=== PATIENT | female | born 1945 | race Caucasian/White ===

== ENCOUNTER 2017-06-03 16:38 | Emergency (ER) | payer OTHER ==
[~2017-06-03] VITALS: Ht 162.6 cm; Wt 74.5 kg
[~2017-06-03 16:38] MED LIST: ACT30 PO; ANECREAM; ANT25 PO; ASPIR-LOW81 M1 PO; COL100 PO; DIA5 PO; FENOFIBRATE48 M1 PO; FERROUS SULFAT325 M2 PO; FOL1 PO; GLIPIZIDE10 MG PO; GLU500 PO; HYDROMORPHONE2 M1 PO; HYDROXYCHLOROQ200 MG PO; I20 PO; L40 PO; LAC PO; LISINOPRIL10 MG PO; LOVASTATIN PO; MAC100 PO; MELOXICAM15 M1 PO; MET2.5 PO; METOPROLOL TARTRATE PO; MIC8 PO; MOT800 PO; NEU300 PO; NITROGLYCERIN0.4 MG SL; OMEPRAZOLE40 M1 PO; PRE5 PO; PREDNISONE2.5 MG PO; PRI20 PO; REG10 PO; RES15 PO; SYN125 PO; TRICOR PO; VENTOLIN HFA; VICODIN1 TA1 PO; XANAX0.25 MG PO; ZES10 PO; ZOC10 PO
[2017-06-03 17:51] LABS: BASOPHIL % 0.2 % (0-2); PLATELET COUNT 206 x10^3mcL (130-400)
[2017-06-03 17:55] LABS: CALCIUM 9.7 mg/dL (8.5-10.1); CHLORIDE SERUM 102 mmol/L (98-107); CREATININE SERUM 1.6 mg/dL (0.6-1.0); GLUCOSE SERUM 123 mg/dL (74-106); POTASSIUM SERUM 4.3 mmol/L (3.5-5.1); SODIUM SERUM 137 mmol/L (136-145)
[2017-06-03 17:59] LABS: ALBUMIN 3.8 g/dL (3.4-5.0); ALKALINE PHOSPHATASE 52 U/L (46-116); ALT/SGPT 13 U/L (14-59); AMYLASE 50 U/L (25-115); AST/SGOT 13 U/L (15-37); BILIRUBIN TOTAL 0.3 mg/dL (0.20-1.00); LIPASE 347 IU/L (73-393)
[2017-06-03 18:01] LABS: RED CELL DISTRIBUTION WIDTH 15.6 % (11.5-14.5)
[2017-06-03 18:09] LABS: microscopic required? NO
[2017-06-03 18:15] LABS: UA SPECIFIC GRAVITY 1.015 (1.005-1.035); urine erythrocyte NEGATIVE (NEGATIVE)
[2017-06-03 20:48] VITALS: BP 133/76
== END 2017-06-03 20:42 | disposition home or self-care (01) ==
LOC: ED 16:38
PROVIDERS: Emergency Medicine
DX: R10.30 Lower abdominal pain, unspecified (principal); K57.92 Diverticulitis of intestine, part unspecified, without perforation or abscess without bleeding; I49.9 Cardiac arrhythmia, unspecified; I10 Essential (primary) hypertension; E11.9 Type 2 diabetes mellitus without complications
CPT/HCPCS: 36415; J2270; Q0162

== ENCOUNTER 2017-08-02 09:06 | Emergency (ER) | payer OTHER ==
[~2017-08-02] VITALS: Ht 162.6 cm; Wt 76.7 kg
[2017-08-02 10:25] VITALS: BP 146/70
== END 2017-08-02 10:39 | disposition home or self-care (01) ==
LOC: ED 09:06
DX: M54.31 Sciatica, right side (principal); I12.9 Hypertensive chronic kidney disease with stage 1 through stage 4 chronic kidney disease, or unspecified chronic kidney disease; E11.22 Type 2 diabetes mellitus with diabetic chronic kidney disease; N18.3 Chronic kidney disease, stage 3 (moderate); Z90.49 Acquired absence of other specified parts of digestive tract; Z90.710 Acquired absence of both cervix and uterus
CPT/HCPCS: J1100; J1885

== ENCOUNTER 2018-07-06 21:08 | Emergency (ER) | payer OTHER ==
[~2018-07-06] VITALS: Ht 162.6 cm; Wt 73.6 kg
[2018-07-06 21:16] VITALS: Ht 162.6 cm; Wt 73.6 kg
[2018-07-06 22:32] LABS: CALCIUM 9.6 mg/dL (8.5-10.1); CARBON DIOXIDE 20.9 mmol/L (21-32); CHLORIDE SERUM 109 mmol/L (98-107); CREATININE SERUM 1.6 mg/dL (0.6-1.0); GLUCOSE SERUM 131 mg/dL (74-106); POTASSIUM SERUM 4.4 mmol/L (3.5-5.1); SODIUM SERUM 140 mmol/L (136-145)
[2018-07-06 22:33] LABS: BASOPHIL % 0.4 % (0-2); PLATELET COUNT 184 x10^3mcL (130-400)
[2018-07-06 22:34] LABS: RED CELL DISTRIBUTION WIDTH 14.6 % (11.5-14.5)
[2018-07-06 22:37] LABS: ALKALINE PHOSPHATASE 136 U/L (46-116); ALT/SGPT 32 U/L (14-59); AST/SGOT 26 U/L (15-37); BILIRUBIN TOTAL 0.18 mg/dL (0.20-1.00); TOTAL PROTEIN, SERUM 6.2 g/dL (6.4-8.2)
[2018-07-06 22:40] LABS: ALBUMIN 3.1 g/dL (3.4-5.0)
[2018-07-06 23:25] VITALS: BP 122/70
== END 2018-07-06 23:25 | disposition home or self-care (01) ==
LOC: ED 21:08
PROVIDERS: Emergency Medicine
DX: J20.9 Acute bronchitis, unspecified (principal); I10 Essential (primary) hypertension; E11.9 Type 2 diabetes mellitus without complications; M19.90 Unspecified osteoarthritis, unspecified site; E78.00 Pure hypercholesterolemia, unspecified; Z86.79 Personal history of other diseases of the circulatory system; M54.6 Pain in thoracic spine
CPT/HCPCS: 36415

== ENCOUNTER 2019-09-05 18:27 | Emergency (ER) | payer OTHER ==
[~2019-09-05] VITALS: Ht 160 cm; Wt 67.1 kg
[2019-09-05 18:33] VITALS: Ht 160 cm; Wt 67.1 kg
[2019-09-05 22:01] VITALS: BP 140/66
== END 2019-09-05 22:01 | disposition home or self-care (01) ==
LOC: ED 18:27
DX: M54.41 Lumbago with sciatica, right side (principal); E11.22 Type 2 diabetes mellitus with diabetic chronic kidney disease; I12.9 Hypertensive chronic kidney disease with stage 1 through stage 4 chronic kidney disease, or unspecified chronic kidney disease; N18.3 Chronic kidney disease, stage 3 (moderate); E78.00 Pure hypercholesterolemia, unspecified; M19.90 Unspecified osteoarthritis, unspecified site; Z86.2 Personal history of diseases of the blood and blood-forming organs and certain disorders involving the immune mechanism
CPT/HCPCS: J1885; Q0162